=== PATIENT | female | born 1950 | race Caucasian/White ===

== ENCOUNTER 2018-05-08 21:04 | Emergency (ER) | payer SELFPAY ==
[~2018-05-08] VITALS: Ht 162.6 cm; Wt 52.2 kg
[2018-05-08 21:19] VITALS: BP 131/67; PULSE 80; RESP 18; Ht 162.6 cm; Wt 52.2 kg
== END 2018-05-08 22:08 | disposition left against medical advice (07) ==
LOC: FTE 21:04
DX: Z53.21 Procedure and treatment not carried out due to patient leaving prior to being seen by health care provider (principal)

== ENCOUNTER 2018-11-06 18:12 | Emergency (ER) | payer SELFPAY ==
[~2018-11-06] VITALS: Wt 62.0 kg
[2018-11-06 18:15] VITALS: BP 123/71; PULSE 94; RESP 18
[2018-11-06] MEDS ORDERED: ACET-141 PO (18:34)
--- NOTE | 2018-11-06 18:39 | ERD ---
ER Documentation Chief Complaint Chief Complaint plastic empty bucket fell on nose of patient. no loc. no trauma HPI 68-year-old female with no significant past medical history presents for headache x1 day. She was at the store and stated that some plastic tractions fell onto her head. She denies loss of consciousness or vomiting afterwards. She states that she has a bruise over the left side of her forehead. Currently she states she has about 6 out of 10 pain. Pain is described as sharp. She denies any other symptoms. Denies chest pain or shortness of breath. Denies abdominal pain, nausea, vomiting. No other modifying factors noted. No ROS All systems reviewed and are negative except as per history of present illness. Medications Home Meds Active Scripts Acetaminophen* (Acetaminophen*) 500 MG Extra Strength Tablet, 500 MG PO Q4H PRN for PAIN AND OR ELEVATED TEMP, #30 TAB Prov:KENNEDI WORTHY DO 11/06/18 Allergies Allergies: Coded Allergies: aspirin (Verified Allergy, Unknown, 05/08/18) codeine (Verified Allergy, Unknown, 05/08/18) PMhx/Soc Medical and Surgical Hx: pt denies Medical Hx, pt denies Surgical Hx Hx Alcohol Use: No Hx Substance Use: No Hx Tobacco Use: No Smoking Status: Never smoker FmHx Family History: No coronary disease Physical Exam Vitals Vital Signs Date Temp Pulse Resp B/P (MAP) Pulse Ox O2 O2 Flow FiO2 Time Delivery Rate 11/06/18 97.9 94 18 123/71 98 18:15 (88) Physical Exam Const: No acute distress Head: no carrera sign, no contusion, no scalp depression noted, small 0.5 cm bruise noted over the left posterior scalp Eyes: Normal Conjunctiva, PERRL, EOMI ENT: Normal External Ears, Nose and Mouth. no fluid leak from ear canals or nose. Neck: Full range of motion. No meningismus. no midline tenderness Resp: Clear to auscultation bilaterally, normal respiratory effort Cardio: Regular rate and rhythm, no murmurs, bilateral radial and dorsalis pe dis pulses intact Abd: Soft, non tender, non distended. Normal bowel sounds Skin: No petechiae or rashes Back: No midline or flank tenderness Ext: No cyanosis, or edema, 5/5 muscle strength upper and lower extremities Neur: Awake and alert, bilateral upper and lower extremity sensation intact Psych: Normal Mood and Affect Procedures/MDM Medical Decision Making: Patient presents for head pain status post injury from plastic tractor falling on her head. There is no loss conscious or vomiting. Patient appeared well on physical exam. Small bruise noted over the left side of the scalp. Patient was neurovascularly intact. It is felt that imaging was unnecessary given the patient looked well, there is no loss of consciousness or vomiting noted. GCS 15. Patient advised to monitor for symptoms and if new or worsening symptoms to return to the ER. Prescription(s): Patient given prescription for supportive medication(s). Patient advised to follow up with PCP in 1-2 days. Patient advised to return to ED for new or worsening symptoms. Patient stable on discharge from the ED. Disclaimer: Inadvertent spelling and grammatical errors are likely due to EHR/dictation software use and do not reflect on the overall quality of patient care. Also, please note that the electronic time recorded on this note does not necessarily reflect the actual time of the patient encounter. Departure Diagnosis: Primary Impression: Acute head injury Encounter type: initial encounter Qualified Codes: S09.90XA - Unspecified injury of head, initial encounter Condition: Fair Patient Instructions: HEAD INJURY, No Wake-Up (Adult) Referrals: [facility] YOU HAVE RECEIVED A MEDICAL SCREENING EXAM AND THE RESULTS INDICATE THAT YOU DO NOT HAVE A CONDITION THAT REQUIRES URGENT TREATMENT IN THE EMERGENCY DEPARTMENT. FURTHER EVALUATION AND TREATMENT OF YOUR CONDITION CAN WAIT UNTIL YOU ARE SEEN IN YOUR DOCTORS OFFICE WITHIN THE NEXT 1-2 DAYS. IT IS YOUR RESPONSIBILITY TO MAKE AN APPOINTMENT FOR FOLOW-UP CARE. IF YOU HAVE A PRIMARY DOCTOR --you should call your primary doctor and schedule an appointment IF YOU DO NOT HAVE A PRIMARY DOCTOR YOU CAN CALL OUR PHYSICIAN REFERRAL HOTLINE AT IF YOU CAN NOT AFFORD TO SEE A PHYSICIAN YOU CAN CHOSE FROM THE FOLLOWING [facility] [address] [facility] [address] [facility] [address] [facility] [address] [facility] [address] [facility]. [facility]. [address] Additional Instructions: Llame al doctor MAANA y shannon tamara JIGNESH PARA DENTRO DE 1-2 GALLEGOS.Dgale a la secretaria que nosotros le instruimos hacer esta jignesh.Avise o llame si wheeler condicin se empeora antes de la jignesh. Regresa aqui si peor o no mejor. evitar el esthero KENNEDI WORTHY DO Nov 06, 2018 18:39
== END 2018-11-06 18:37 | disposition home or self-care (01) ==
LOC: E/R 18:12
DX: S00.03XA Contusion of scalp, initial encounter (principal); W20.8XXA Other cause of strike by thrown, projected or falling object, initial encounter; Y92.9 Unspecified place or not applicable
CPT/HCPCS: 99283